=== PATIENT | female | born 1975 | race Caucasian/White ===

== ENCOUNTER → 2024-05-22 | Outpatient (CLI) | payer OTHER, SELFPAY ==
--- NOTE | 2024-05-22 17:04 | US_ITS ---
PROCEDURE: ULTRASOUND PELVIS, TRANSVAGINAL AND TRANSABDOMINAL REASON FOR EXAM: HEAVY BLEEDING DURING. TECHNIQUE: Real-time grayscale and color flow imaging was performed along with routine image documentation. COMPARISON: None. FINDINGS: Measurements: Uterus: 10.1 x 6.9 x 5.9 cm with a volume of 216 mL Endometrial Thickness: 1.1 cm. Right Ovary: 2.4 x 2.3 x 1.5 cm with a volume of 4.25 mL. Left Ovary: 1.7 x 1.7 x 1.6 cm with a volume of mL. Uterus: Normal size. Heterogeneous myometrium.. Midline fibroid measuring 1.4 x 0.9 x 0.9 cm. Right inferior fibroid measuring 1.4 x 1.4 x 1.2 cm. Cervix: Nabothian cysts measuring up to 1.4 cm. Endometrium: 1.1 cm thickness. Right ovary: Normal size and echotexture. No masses. Left ovary: Normal size and echotexture. No masses. Bladder: Unremarkable. US/Pelvic w/ Transvaginal IMPRESSION: 1. Small uterine fibroids. 2. Small nabothian cysts. Reading Location: [facility]
== END | disposition home or self-care (01) ==
LOC: US 17:02
PROVIDERS: Referring Provider Nurse Practitioner Family; Visit Provider Nurse Practitioner Family
DX: N93.9 Abnormal uterine and vaginal bleeding, unspecified (principal)
CPT/HCPCS: 76830; 76856

== ENCOUNTER → 2024-07-29 | Outpatient (CLI) | payer OTHER, SELFPAY ==
[2024-07-29 12:09] LABS: Absolute Lymphocyte Count 1.52 X10^3/uL (0.83-4.51); Absolute Neutrophil Count 4.9 X10^3/uL (2.0-7.7); Basophil# 0.04 X10^3/uL; Basophil% 0.6 % (0-1); Eosinophil# 0.22 X10^3/uL; Eosinophils% 3.1 % (0-5); Hematocrit 37.3 % (37-47); Hemoglobin 12.1 g/dL (12.0-15.0); Lymphocyte # 1.52 X10^3/ul (0.83-4.51); Lymphocyte % 21.3 % (19-41); Mean Corp Hgb Conc 32.4 g/dL (32-36); Mean Corpuscular Hgb 29.7 pg (27.0-32.0); Mean Corpuscular Volume 91.4 fL (81-99); Mean Platelet Vol. 9.8 fl (6.2-12.0); Monocyte# 0.29 X10^3/uL; Monocyte% 4.1 % (0-10); NRBC Flagged by Analyzer 0 % (0-5); Neutrophil # 4.94 X10^3/uL (2.7-7.7); Neutrophil % 69.2 % (47-70); Platelet Count 205 K/mm3 (150-450); RBC Distribution Width CV 12.5 % (11.6-14.6); RBC Distribution Width SD 41.9 fl (35.1-43.9); Red Blood Count 4.08 M/mm3 (4.2-5.4); White Blood Count 7.1 K/mm3 (4.4-11.0)
== END | disposition home or self-care (01) ==
LOC: BWCLAB 11:45
PROVIDERS: Referring Provider Nurse Practitioner Women's Health; Visit Provider Nurse Practitioner Women's Health
DX: N92.0 Excessive and frequent menstruation with regular cycle (principal); N94.6 Dysmenorrhea, unspecified; E05.90 Thyrotoxicosis, unspecified without thyrotoxic crisis or storm; R53.83 Other fatigue
CPT/HCPCS: 36415; 84439; 84443; 85025

== ENCOUNTER → 2024-08-05 | Outpatient (CLI) | payer OTHER, SELFPAY ==
--- NOTE | 2024-08-05 09:00 | EMB_PTH ---
PATIENT: MONICA ALFORD LOC: [facility] U#:[id number] AGE/SX: 49/F ROOM: RE08/05/[address]: Dr. Roselyn Crowe MD : [id number] BED: DIS: 08/05/2024 SPEC #: [id number] RECD: 08/05/24 12:09 STATUS: VANESSA MARTINEZGlen #: [id number] SHYAM: 08/05/24 09:[address]: Roselyn Crowe DEPT: SURGICAL PATHOLOGY RECD BY: Noe Nichole Tissues: A - Endometrium, NOS Procedures: Surgery Specimen Level IV HEADER OPERATION: Endometrial biopsy PRE-OP DIAGNOSIS: Menorrhagia TISSUE SUBMITTED: A- Endometrial tissue MICROSCOPIC DIAGNOSIS A. Endometrium, biopsy: * Inactive endometrium MICROSCOPIC DESCRIPTION Slides are reviewed. GROSS DESCRIPTION A. Received in formalin in a container labeled with the patient's name, date of , and with no further designation are multiple cortés-pink fragments of soft tissue admixed with blood and mucus measuring 2.0 x 0.8 x 0.3 cm in aggregate. Submitted in toto in A1. [facility] 08-05-2024 CPT:32160
== END | disposition home or self-care (01) ==
LOC: LABSPEC 11:30
PROVIDERS: Referring Provider Obstetrics & Gynecology; Visit Provider Obstetrics & Gynecology
DX: N92.0 Excessive and frequent menstruation with regular cycle (principal)
CPT/HCPCS: 88305

== ENCOUNTER → 2024-08-13 | Outpatient (CLI) | payer OTHER, SELFPAY ==
--- NOTE | 2024-08-13 12:15 | BI_ITS ---
EXAM: SCRN MAMM (CAD)W/DANIAL BILAT DATE: 08/13/2024 CLINICAL HISTORY: F, Age 49 y/o , SCREEN FOR BREAST CANCER No family history. BREAST CANCER RISK ASSESSMENT: Not assessed. TECHNIQUE: Bilateral screening digital breast tomosynthesis with 2D and 3D images. Computer aided detection. COMPARISON: Prior exam(s) dated January 31, 2023 and September 27, 2023.. FINDINGS: TISSUE DENSITY: The breast tissue is heterogenously dense, which may obscure small masses. Bilateral Breast Mammographic Findings: No significant masses, calcifications or other abnormalities are identified. No suspicious masses, areas of developing architectural distortion, or suspicious calcifications. There has been no significant interval change. BI/SCRN MAMM (CAD)W/DANIAL BILAT IMPRESSION: OVERALL FINAL ASSESSMENT: BIRADS 1 NEGATIVE RECOMMENDATION: Routine annual follow-up in 1 Year A letter with findings and recommendations will be mailed to the patient. Reading Location: [id number]
== END | disposition home or self-care (01) ==
LOC: OPBI 12:46
PROVIDERS: Referring Provider Obstetrics & Gynecology; Visit Provider Obstetrics & Gynecology
DX: Z12.31 Encounter for screening mammogram for malignant neoplasm of breast (principal)
CPT/HCPCS: 77063; 77067

== ENCOUNTER 2024-08-18 05:40 | Day surgery (SDC) | payer OTHER, SELFPAY ==
[2024-08-18] VITALS (14 sets, daily range): BP systolic 98–145; BP diastolic 53–88; PULSE 68–91; RESP 14–18; TEMP 36.2–37.2; O2SAT 84–100; BMI 37.9
[2024-08-18 06:06] LABS: Internal QC Validated? YES +Cl - CLEAR BKGD; Pregnancy, Urine Negative Negative
[2024-08-18] MEDS: Lactated Ringers 1,000 ML 40 ML IV ×2 (06:34→11:41)
--- NOTE | 2024-08-18 06:34 | EKG12_ITS ---
Test Reason : PREOP Blood Pressure : */* mmHG Vent. Rate : 77 BPM Atrial Rate : 77 BPM P-R Int : 156 ms QRS Dur : 78 ms QT Int : 368 ms P-R-T Axes : 43 19 24 degrees QTcB Int : 416 ms Normal sinus rhythm Normal ECG No previous ECGs available Confirmed by WIN JAQUEZ, MADELIN ([id number]), continuity editor RENATO CORTES ([id number]) on 08/20/2024 6:00:16 AM Referred By: Roselyn Crowe Confirmed By: MADELIN WALDEN MD
[2024-08-18] MEDS: Phenazopyridine 95 MG Tablet 190 MG PO (06:35)
[2024-08-18] MEDS: Acetaminophen 500 MG Tablet 1000 MG PO ×2 (06:35→14:57)
[2024-08-18] MEDS: Gabapentin 600 MG Tablet PO (06:36)
[2024-08-18] MEDS: Celecoxib 200 MG Capsule 400 MG PO (06:36)
[2024-08-18] MEDS: Scopolamine 1mg/72hr Patch 1 PATCH TD (06:37)
[2024-08-18] MEDS: Enoxaparin 40 MG/0.4 ML Syringe SC (06:39)
[2024-08-18 06:50] LABS: Bedside Glucose 164 mg/dL (74-106)
--- NOTE | 2024-08-18 06:50 | PRE.ANES_ITS ---
ASA Classification* ASA Classification ASA Classification: 3 Assessment & Plan Anesthesia* Anesthesia Assessment Anesthesia Assessment: Discussed sedation and/or anesthesia options, risks, benefits, and alternatives with patient/parents/legal guardian/POA. Questions invited. The patient/parents/legal guardian/POA seems to understand and agrees to proceed with anesthesia plan. Reviewed the physical assessment, medical history, allergy history and patient home medications list prior to surgery/procedure/anesthetic and documented any changes. Performed airway and anesthesia risk assessments. Anesthesia Type Anesthesia Type: General Anesthesia Focused Assessment* Temperature: 98.3 F Pulse Rate: 87 Blood Pressure: 129/64 Respiratory Rate: 16 Pulse Ox: 100 Airway Assessment Mouth opens: >3 cm Mallampati Score: II Focused Labs Anesthesia Preop lab: CBC WBC 7.1 K/mm3 (4.4-11.0) 07/29/24 11:46 07/29/24 RBC 4.08 M/mm3 (4.2-5.4) L 07/29/24 11:46 07/29/24 Hgb 12.1 g/dL (12.0-15.0) 07/29/24 11:46 07/29/24 Hct 37.3 % (37-47) 07/29/24 11:46 07/29/24 Plt Count 205 K/mm3 (150-450) 07/29/24 11:46 07/29/24 CHEMISTRY Potassium Pending 08/18/24 06:25 08/18/24 Sodium Pending 08/18/24 06:25 08/18/24 Magnesium Pending 08/18/24 06:25 08/18/24 BUN Pending 08/18/24 06:25 08/18/24 Creatinine Pending 08/18/24 06:25 08/18/24 Glucose Pending 08/18/24 06:25 08/18/24 TSH 2.920 uIU/mL (0.300-4.200) 07/29/24 11:46 07/02 COAG Urine Test Negative Negative 08/18/24 05:50 08/18/24 Pre-Assessment Diagnosis/Proposed Procedure Planned Operative Procedure(s): [facility] BSO Anesthesia History 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 When Was Last Pacemaker Check QUESTION #4 FULL TEXT: You/Your Family Experience fever (hyperthermia) with Anesthesia Last Oral Intake Last Oral intake: Last Oral Intake NPO since 23:00 08/18/24 06:12 Meds taken in AM with sips of Yes 08/18/24 06:12 water? Meds patient instructed to take am of surgery PONV PONV - vine pruner: PONV - vine pruner Female Yes 08/12/24 15:33 HX of Motion Sickness No 08/12/24 15:33 HX of N/V After Surgery No 08/12/24 15:33 Non-Smoker Yes 08/12/24 15:33 Duration of Surgery greater Yes 08/12/24 15:33 than 60 minutes Number of Risk Factors 3 08/12/24 15:33 PONV Score Moderate Risk 08/12/24 15:33 Height & Weight Height & Weight: Anesthesia: Height & Weight Height 5 ft 9 in 08/18/24 06:12 Weight: 116.573 kg 08/18/24 06:12 Body Mass Index (BMI) 37.9 08/18/24 06:12 Respiratory Assessment Respiratory Assessment - vine pruner: Respiratory Tract Infection Hx - vine pruner Hx Respiratory Tract Infection No 08/12/24 15:33 STOP Sleep Apnea STOP Sleep Apnea - vine pruner: STOP Sleep Apnea - vine pruner Hx Hypertension Yes: ONLY WITH 20 08/12/24 15:33 YRS AGO Hx Sleep Apnea No 08/12/24 15:33 CPAP BIPAP Do you snore loudly (louder No 08/12/24 15:33 than talking or can be heard Do you often feel tired/ No 08/12/24 15:33 fatigued/ sleepy during daytime? Has anyone observed you stop No 08/12/24 15:33 breathing during sleep? STOP Results Negative 08/12/24 15:33 QUESTION #5 FULL TEXT : Do you snore loudly (louder than talking or can be heard through closed doors)? 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 Specify any problems Hx of Preganancy in last 3 No 08/12/24 15:33 Months Nurse Filling Out Transfusion DSCHRIBER 08/12/24 15:33 & Questions: Date: 08/12/24 08/12/24 15:33 Time: 15:34 08/12/24 15:33 Patient unable to answer at this time (ie. confused, unrespo /Reproduction History /Reproductive History - vine pruner: /Reproductive Hx- vine pruner Hx Now No 08/12/24 15:33 Gestational Age (in weeks): EDC: Hx Hx Para Hx Section SAB No 08/12/24 15:33 Active Medications Active Medications: Current Medications Generic Name Dose Route Start Last Admin Trade Name Freq PRN Reason Stop Dose Admin Acetaminophen 1,000 mg 08/18/24 07:30 08/18/24 06:35 Acetaminophen 500 Mg Tablet PO 08/18/24 07:31 1,000 mg PREOP ONE Administration Celecoxib 400 mg 08/18/24 07:30 08/18/24 06:36 Celecoxib 200 Mg Capsule PO 08/18/24 07:31 400 mg PREOP ONE Administration Dexamethasone Sodium Phosphate 8 mg 08/18/24 07:30 Dexamethasone 4 Mg/Ml Vial IV 08/18/24 07:31 INTRAOP ONE Enoxaparin Sodium 40 mg 08/18/24 07:30 08/18/24 06:39 Enoxaparin 40 Mg/0.4 Ml Syringe SC 08/18/24 07:31 40 mg PREOP ONE Administration Gabapentin 600 mg 08/18/24 07:30 08/18/24 06:36 Gabapentin 600 Mg Tablet PO 08/18/24 07:31 600 mg PREOP ONE Administration Lactated Ringer's 1,000 mls @ 40 mls/hr 08/18/24 07:30 08/18/24 06:34 IV 40 mls/hr .Q25H CARLOS Administration Cefazolin Sodium 2 gm/ Sodium 110 mls @ 150 mls/hr 08/18/24 07:30 Chloride IV 08/18/24 08:13 INTRAOP ONE Insulin Human Lispro 0 unit 08/18/24 07:30 Insulin Lispro 100 Unit/Ml Insuln.Pen SC 08/18/24 18:00 Q4H PRN PRN BG >/= 180, SEE PROTOCOL Protocol Ondansetron HCl 4 mg 08/18/24 07:30 Ondansetron 4 Mg/2 Ml Vial IV 08/18/24 07:31 INTRAOP ONE Phenazopyridine HCl 190 mg 08/18/24 07:30 08/18/24 06:35 Phenazopyridine 95 Mg Tablet PO 08/18/24 07:31 190 mg PREOP ONE Administration Scopolamine HBr 1 patch 08/18/24 07:30 08/18/24 06:37 Scopolamine 1mg/72hr Patch TD 08/18/24 07:31 1 patch PREOP ONE Administration PFSH Medical History Wears glasses Anxiety History of steroid therapy Low iron Non-smoker Hypertension Hyperthyroidism Hepatitis A Diabetes Contraceptive management Home Medications ?Medication ?Instructions ?Recorded ?Last Taken ?Type alprazolam 0.5 mg tablet 0.5 mg PO PRN ANXIETY 08/18/24 04:00 History levothyroxine 175 mcg tablet 175 mcg PO QAM 05/19/24 0 08/18/24 04:00 History norethindrone acetate 5 mg tablet 5 mg PO TID #90 tabs 08/10/24 08/17/24 Rx Allergy/AdvReac Type Severity Reaction Status Date / Time No Known Allergies Allergy Verified 08/12/24 15:29 Family History Sister Immune thrombocytopenia Mother Bladder cancer Diabetes Myocardial infarction Thyroid disorder Father Diabetes Myocardial infarction Grandfather Diabetes Myocardial infarction Grandmother Thyroid disorder Surgical History History of tonsillectomy and adenoidectomy History of thyroidectomy Social History household members: spouse Smoking Status: Never smoker substance use type: does not use do you feel safe at home: Yes additional social history: -Travon Review of Systems (Anesthesia) ROS Narrative System reviewed and no additional complaints, except as documented.
[2024-08-18] MEDS: Bupivacaine 0.25% 30 ML Vial (06:56)
[2024-08-18] MEDS: Vasopressin 20 UNITS/ML Vial (06:56)
--- NOTE | 2024-08-18 07:03 | PCM.HP.BLA ---
History and Physical Intake Vital Signs 07/29/2510:38 07/30/2511:10 08/06/2507:45 Height 5 ft 9 in 5 ft 9 in 5 ft 9 in Weight: 251 lb 4 oz BMI 37.0 BP 126/85 H Intake Visit Reasons: EMB *ok per Acid Tender Required: No Is patient in pain?: No Allergies No Known Allergies Allergy (Verified 08/05/24 08:47) Medications ?Medication ?Instructions ?Recorded ?Confirmed ?Type alprazolam 0.5 mg tablet mg PO 05/19/24 08/05/24 History levothyroxine 175 mcg tablet 175 mcg PO QAM 05/19/24 08/05/24 History norethindrone acetate 5 mg tablet 5 mg PO .COMPLEX #45 tabs 07/29/24 08/05/24 Rx Is last menstrual period known: No Patient : No : No PFSH PFSH Medical History (Updated 08/05/24 @ 09:[address] Roselyn Crowe MD) Hyperthyroidism Hepatitis A Diabetes Contraceptive management Surgical History History of thyroidectomy Family History Sister Immune thrombocytopeniaMother Bladder cancer Diabetes Myocardial infarction Thyroid disorderFather Diabetes Myocardial infarctionGrandfather Diabetes Myocardial infarctionGrandmother Thyroid disorder Social History household members: spouse Smoking Status: Never smoker substance use type: does not use do you feel safe at home: Yes additional social history: -Travon History 1 Elective abortions Hx Para 1 Spontaneous abortions Hx # Term Pregnancies Ectopic pregnancies Hx # Pregnancies Multiple births # of living children HPI EMB *ok per Details: MONICA ALFORD is a 49 year old who presents for ocnsult for surgery. she is having heavy prolonged menses increasing over the last 6 months.. she has failed medical management with progesterone, she has uterine fibroids on ultrasound. endometrial biopsy done today. she is wanting to proceed with a hysterectomy. she bled for almost the whole month of june, she is just now stopping bleeding. Uterus: 10.1 x 6.9 x 5.9 cm with a volume of 216 mL Endometrial Thickness: 1.1 cm. Right Ovary: 2.4 x 2.3 x 1.5 cm with a volume of 4.25 mL. Left Ovary: 1.7 x 1.7 x 1.6 cm with a volume of mL. Uterus: Normal size. Heterogeneous myometrium.. Midline fibroid measuring 1.4 x 0.9 x 0.9 cm. Right inferior fibroid measuring 1.4 x 1.4 x 1.2 cm. Female Reproductive History Last Menstrual Period: 04/24/24 Cycle Length: 21-35 Bleeding Duration: 7 Questions: metorrhagia: No, sexually active: Yes, dyspareunia: No and PCB: No Menopausal Symptoms: No night sweats ROS Const Constitutional: Denies fatigue, night sweats, weight gain or weight loss ENT ENT: Reports system reviewed and no additional complaints, except as documented Cardio Card: Denies chest pain Resp Resp: Denies cough or dyspnea GI GI: Reports as per HPI; Denies abdominal pain, constipation, nausea or vomiting : Denies nipple discharge, urinary frequency, urinary incontinence, urinary hesitancy, urinary urgency, vaginal discharge, vaginal dryness, vaginal odor or vaginal pruritus Musc Musc: Denies arthralgias, back pain or muscle weakness Skin Skin/Breast: Denies alopecia, change in hair, dry skin, breast mass, breast pain, breast skin changes or nipple discharge Neuro Neuro: Reports system reviewed and no additional complaints, except as documented Psych Psych: Reports system reviewed and no additional complaints, except as documented Endo Endo: Denies cold intolerance, excessive sweating, heat intolerance or polydipsia Rayshawn/Lymph Hematologic/Lymphatic: Denies easy bleeding, Denies easy bruising and Denies lymphadenopathy Exam Const General: cooperative, healthy appearing, comfortable, no acute distress and well developed Orientation: alert [facility] Head: normal to inspection and normocephalic Ears: hearing grossly normal bilaterally and external ears normal Nose: external nose normal and nares normal Face and sinus: normal facial exam Neck Neck: normal visual inspection and no lymphadenopathy Thyroid: thyroid normal Chest Chest palpation & inspection: normal inspection of the chest Resp Effort & Inspection: normal respiratory effort Auscultation: clear to auscultation bilaterally Cardio Rate: regular rate Rhythm: regular rhythm Heart Sounds: S1 normal and S2 normal GI Inspection: normal to inspection and non-distended Palpation: soft and no hepatosplenomegaly General: bladder normal to palpation External Female Exam: normal external appearance and normal appearance of the urethra Urethra: normal appearance of the urethra, normal palpation and no discharge Speculum Exam - Vagina: normal appearance of the vagina and normal vaginal discharge Speculum Exam - Cervix: normal appearance of the cervix and nontender Bimanual Exam- Vagina & Uterus: normal bimanual exam, uterine size normal, bladder normal to palpation, uterine shape normal, No tender, uterine mobility normal, consistency normal, normal palpation and non-tender Bimanual Exam- Adnexa, other: normal adnexae, adnexae mobile, no masses and normal Pelvic Support: normal Musc Other: gross motor intact no deficits, full bilateral strength Skin General: no rashes or lesions noted Neuro General: patient alert, patient awake, moves all extremities and no focal motor deficits Motor: muscle tone normal throughout Extrem General: normal to inspection and no pedal edema Psych Appearance: grossly normal Mental Status: mental status grossly normal Affect: normal affect Speech and Movement: speech and movement normal Office Procedures Endometrial Biopsy Endometrial Biopsy Test: Yes Negative Consent Signed: Yes Time out checklist: patient, procedure, site marked/identified, positioning of patient, supplies available, allergies confirmed and team agrees on procedure Time out time: 09:18 tenaculum used: No dilator used: No Details: Cervix prepped with betadine and pipelle inserted into uterus without complication. Specimen obtained and sent to lab for analysis. All instruments removed from vagina without complications. Excellent hemostasis noted. Coding Level of Care Code Off vis,est,level 4 Diagnoses Uterine leiomyoma, unspecified location D25.9 Uterine leiomyoma location: unspecified location Dysmenorrhea N94.6 Menorrhagia with irregular cycle N92.1 Menorrhagia type: with irregular cycle CPT Codes Endometrial Biopsy (63918) Assessment and Plan Assessment and Plan (1) Uterine fibroid: Status: Acute Qualifiers: Uterine leiomyoma location: unspecified location Qualified Code(s): D25.9 - Leiomyoma of uterus, unspecified Comment: 2 seen on US up to 1.4cm. plan LAVHBS. (2) Dysmenorrhea: Status: Acute (3) Menorrhagia: Status: Acute Qualifiers: Menorrhagia type: with irregular cycle Qualified Code(s): N92.1 - Excessive and frequent menstruation with irregular cycle Orders: Orders Endometrial Biopsy Today Plan After discussing the patient's diagnosis and treatment plan options, patient wishes to proceed with surgical management. I have discussed with the patient the risks, benefits, and alternatives of the procedure which include but are not limited to risks of anesthesia, bleeding, infection, possible damage to bowel, bladder, or surrounding vasculature which could lead to additional surgery to evaluate any complications. Patient agrees to procedure and wishes to proceed. ACOG/uptodate references given for additional information regarding procedure. UPDATE- I have seen the patient and performed any clinically relevant updates to the history and physical exam. Roselyn Crowe MD
[2024-08-18 07:28] LABS: ALB/GLOB Ratio 1.4 RATIO (0.9-2.4); AST(SGOT) 18 U/L (<=31); Alanine Aminotransfer ALT/SGPT 21 U/L (<=34); Albumin, Serum 4.1 g/dL (3.5-5.0); Alkaline Phosphatase 48 U/L (35-104); Anion Gap 12 (5-15); BUN 16 mg/dL (4-19); BUN/Creat Ratio 21.4 RATIO (10-20); Calcium,Total 9.1 mg/dL (7.6-11.0); Carbon Dioxide 20.7 mmol/L (21.0-32.0); Chloride 107 mmol/L (98-108); Creatinine, Serum 0.72 mg/dL (0.70-1.20); EST Glomerular Filtration Rate 102 (>60); Estimated Creatinine Clearance 130.26 ml/min (50-250); Globulin 2.9 g/dL (2.2-4.2); Glucose 171 mg/dL (70-99); Protein, Total 7.1 g/dL (5.9-8.4); Sodium Level 139 mmol/L (133-145); Total Bilirubin 0.25 mg/dL (0.00-1.30)
--- NOTE | 2024-08-18 07:30 | UT_PTH ---
PATIENT: MONICA ALFORD [place] [facility] [place][id number] AGE/SX: 49/F ROOM: RE08/18/[address]: Dr. Roselyn Crowe MD : 1975 BED: DIS: 08/18/2024 SPEC #: [id number] RECD: 08/18/24 12:14 STATUS: VANESSA REGlen #: [id number] SHYAM: 08/18/24 07:[address]: Roselyn Crowe DEPT: SURGICAL PATHOLOGY RECD BY: Noe Nichole ENTERED: 08/18/24 13:20 SP TYPE: UTERUS OTHR DR: Bisi Brock, COMMUNICATIONS ANALYST-C Tissues: A - Uterus, NOS Procedures: Immunohistochemical Stains Surgery Specimen Level V IHC Stain ADDITIONAL HEADER OPERATION: ERAS, hysterectomy, LAVH, bilateral salpingectomy, cystoscopy PRE-OP DIAGNOSIS: Uterine leiomyoma, dysmenorrhea, menorrhagia with irregular cycle TISSUE SUBMITTED: A- Uterus, cervix, bilateral fallopian tubes MICROSCOPIC DIAGNOSIS A. Uterus, cervix and bilateral fallopian tubes, hysterectomy and bilateral salpingectomy: * ENDOMYOMETRIUM: ENDOMETRIOID ADENOCARCINOMA, FIGO GRADE 1, WITH SUPERFICIAL MYOMETRIAL INVASION (<50% myometrial invasion) AND INTACT MMR proteins - see Synoptic Report and Comment. * Cervix: mildly dilated endocervical glands. * Right fallopian tube: no specific pathologic change. * Left fallopian tube: no specific pathologic change. SYNOPTIC REPORT: Clinical History? 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 ___ Hysterectomy? ___ Bilateral salpingectomy? Specimen Integrity? ___ Intact? TUMOR? Tumor Size:? unknown (grossly not visualized). Tumor is estimated to involve approximately 50% of the endometrium. Histologic Type ___ Endometrioid carcinoma? Histologic Grade ___ FIGO grade 1 (endometrioid carcinoma) ? Mismatch Repair (MMR) Status? MMR Immunohistochemistry? ___ Intact nuclear expression of MLH1, PMS2, MSH2 and MSH6? p53 Immunohistochemistry? ___ Normal (wild-type) expression? Myometrial Invasion ___ Present, inner half (less than 50%)? Specify Percentage: approximately 15% Adenomyosis? ___ Present, uninvolved by carcinoma? Uterine Serosal Involvement ___ Not identified? Lower Uterine Segment Involvement? ___ Not identified? Cervical Involvement? ___ Not identified? Lymphatic and / or Vascular Invasion? ___ Not identified? MARGINS? Margin Status ___ All margins negative for carcinoma Distance to closest margin? ___ Cannot be determined: tumor was not identified at gross examination REGIONAL LYMPH NODES? Regional Lymph Node Status ___ Not applicable (no regional lymph nodes submitted or found)? DISTANT METASTASIS? Distant Site(s) Involved ___ Not applicable? pTNM CLASSIFICATION (AJCC 8th Edition)?(Note M) Reporting of pT, pN, and (when applicable) pM categories is based on information available to the pathologist at the time the report is issued. As per the AJCC (Chapter 1, 8th Ed.) it is the managing physician's responsibility to establish the final pathologic stage based upon all pertinent information, including but potentially not limited to this pathology report.? pT Category? pT1: Tumor confined to the corpus uteri, including endocervical glandular involvement? _X_ pT1a: Tumor limited to the endometrium or invading less than half the myometrium? ___ pT1b: Tumor invading one half or more of the myometrium? ___ pT1 (subcategory cannot be determined)? ___ pT2: Tumor invading the stromal connective tissue of the cervix but not extending beyond the uterus. Does NOT include endocervical glandular involvement.? pT3: Tumor involving serosa, adnexa, vagina, or parametrium? ___ pT3a: Tumor involving the serosa and / or adnexa (direct extension or metastasis)? ___ pT3b: Vaginal involvement (direct extension or metastasis) or parametrial involvement? ___ pT3 (subcategory cannot be determined)? ___ pT4: Tumor invading bladder mucosa and / or bowel mucosa (bullous edema is not sufficient to classify a tumor as T4) pN Category? ___ pN not assigned (no nodes submitted or found)? FIGO STAGE? FIGO Stage (FIGO 2009 Staging / 2018 FIGO Cancer Report) ___ I: Tumor confined to the corpus uteri? ___ IA: No or less than half myometrial invasion? ADDITIONAL FINDINGS p53: wild type p16: patchy positive Estrogen Receptor: positive (30%, weak intensity) Progesterone Receptor: positive (10%, weak intensity) [id number]: equivocal (2+) COMMENT A preliminary diagnosis was discussed with Dr Crowe 1:58 PM, 09/03/2024. Dr Crowe's office ([place]) was notified of the final [id number] PM, 09/14/24. Selected slides/images were reviewed in intradepartmental consultation by Dr Jordi Bell and Dr Dorian Coker ([employer] pathology division, [facility]). MICROSCOPIC DESCRIPTION Slides are reviewed. All matched controls reacted appropriately (p53, p16, ER, [place], HER2). These tests were developed and their performance characteristics determined by [facility]. They may not have been cleared or approved by the U.S. Food and Drug Administration. The FDA has determined that such clearance or approval is not necessary.? The above immunohistochemical/dualISH?markers are ordered and reviewed by the Pathologist. All controls show appropriate reactivity. (MSH2, MSH6, MLH1, PMS2) All immunohistochemistry, in situ hybridization, and histochemical tests were developed by and are performed at the [facility], [address] [place] [address],? [address], [place] [address]. All Immunofluorescent (IF)?tests were developed by and are performed at the [facility], [address] [place] [address], [place], [place] ?[address]. All tests reported here, except those addressing HER2 overexpression as a predictive marker, have not been cleared by or approved by the US Food and Drug Administration (FDA). The laboratory is regulated under CLIA as qualified to perform high-complexity testing. The tests are used for clinical purposes. They should not be regarded as investigational or for research. GROSS DESCRIPTION A. Received in formalin in a container labeled with the patient's name, date of , and cervix, uterus, bilateral fallopian tubes is a hysterectomy specimen with attached cervix and bilateral attached fimbriated fallopian tubes. The fallopian tubes are amputated and the uterus with cervix weighs 165.4 g, measuring 10.0 cm from fundus to ectocervix, 5.0 cm from cornu to cornu, and 5.5 cm from anterior to posterior. The serosa is cortés-pink, focally roughened, and predominantly smooth. The 3.8 x 3.2 cm white-pink ectocervix is smooth with a 1.0 cm slit-like os. The specimen is bivalved to reveal a 4.0 x 0.8 cm corrugated endocervix with multiple cysts measuring up to 0.7 cm in greatest dimension. The triangular endometrial cavity is 4.3 cm in length by 3.2 cm in width. There is red-cortés, heaped up and thickened endometrium measuring up to 0.8 cm in thickness. No mass-like lesion is grossly recognized. The cortés-pink myometrium is coarsely trabecular and nodular, measuring up to 2.6 cm in greatest thickness. No discrete myometrial nodules are discovered. The right fimbriated fallopian tube is 5.0 cm in length by 0.8 cm in diameter with purple-olvera, smooth and glistening serosa and an unremarkable fimbriated end. Sectioning reveals a pinpoint lumen.The left fimbriated fallopian tube is 4.0 cm in length by 0.8 cm in diameter with cortés-pink, smooth and glistening serosa with an unremarkable fimbriated end. Sectioning reveals a pinpoint lumen. Division Leader sections:A1. Anterior cervix with anterior serosal shaveA2. Posterior cervix with posterior serosal shaveA3. Anterior full-thickness section with coarsely trabecular myometrium and thickened endometriumA4. Anterior endomyometrium (superficial x 2)A5. Posterior full-thickness section with trabecular myometrium and thickened endometriumA6. Posterior endomyometrium (superficial sections)A7. Right fallopian tubeA 8. Left fallopian tube Per pathologist request, the entire endomyometrial junction is submitted as follows:A9. Anterior full-thickness [id number]. Entirety of anterior endometrium submitted sequentially from fundus to lower uterine segment (superficial sections)A15. Anterior lower uterine segment (orange ink connects to anterior cervix submitted in cassette A1) A16. Posterior full-thickness [id number]. Entirety of posterior endomyometrium submitted sequentially from fundus to lower uterine segment (superficial sections) A24. Posterior lower uterine segment (orange ink connects to posterior cervix submitted in cassette A2) [facility] 08-18-2024 CPT:39007,[id number],[id number] ADDENDUM ADDENDUM ADDENDUM ADDENDUM ADDENDUM ADDENDUM ADDENDUM ADDENDUM ADDENDUM ADDENDUM ADDENDUM ADDENDUM ADDENDUM ADDENDUM ADDENDUM ADDENDUM ADDENDUM 09/22/2024 09:51 ADDENDUM 09/22/2024 09:51 ADDENDUM 09/22/2024 09:51 ADDENDUM 09/22/2024 09:51 ADDENDUM 09/22/2024 09:51 This addendum is added to incorporate an outside pathology consultation report. The case was examined at [facility] by Dr. Ray (#[id number]) and the following diagnosis was rendered. A. Uterus, hysterectomy and bilateral salpingectomy: HER2 FISH: NEGATIVE HER2 SCORE REPORT - BLOCK A3: HER2 SCORE: NEGATIVE HER2 / CEP 17 RATIO: 1.2 HER2 COPY NUMBER / CELL: 3.9 Please see complete above mentioned consultation report in EMR
--- NOTE | 2024-08-18 07:33 | PCM.OPRPT ---
Problems Associated Problem List Diagnoses (1) Uterine fibroid: (2) Dysmenorrhea: (3) Menorrhagia: (4) S/P laparoscopic assisted vaginal hysterectomy (LAVH): Procedures Urinary/Genital 52xxx-59xxx: [id number] LAVH+BS/O <250gr Uterus Operative Report (Standard) Operative Information Date of Procedure: 08/18/24 Pre-Operative Diagnosis: see problem list Post-Operative Diagnosis: same Surgery/Procedure Performed: laparoscopic assisted vaginal hysterectomy bilateral salpingectomy guard rail installer: Yes Higher Education Administrator: Richard Dinh Tasks completed by middle school assistant principal: Opening & closing, Trocar and Retracting Additional title i assistant?: No Type of Anesthesia: General RN Documented Start/Stop Times: Operation Date: 08/18/24 07:30 Case Time Into Pre-Op 08/18/24 05:45 Out of Pre-Op 08/18/24 07:31 Anesthesia Start 08/18/24 07:38 Into Room 08/18/24 07:38 Procedure Start 08/18/24 08:09 Procedure Start Time: 08:09 Procedure Stop Time: 10:09 Select all DRAINS/GRAFTS/IMPLANTS that apply: Drains (fenton) Drain details: fenton removed at end of procedure Estimated Blood Loss: 200 Fluids Replaced: crystalloid Specimen collected: Yes Description of specimen(s) removed: uterus and tubes Description of surgery: Patient received preoperative antibiotics and SCDs were on preoperatively. Patient was taken back to the operating room and placed in the dorsal lithotomy position. General anesthesia was induced and patient was prepped and draped in normal sterile fashion. Uterine manipulator was placed inside the uterus and Fenton catheter placed in the bladder. The umbilicus was grasped with towel clamps and an intraumbilical incision was made after injecting with quarter percent Marcaine and a Veress needle entered into the abdomen confirmed to be intra-abdominal with a low opening pressure. Abdomen was insufflated with CO2 gas and the Veress needle removed and the 5 mm trocar was placed under direct visualization without complication. Right and left lower quadrants were transilluminated and injected with quarter percent Marcaine and 5 mm ports placed under direct visualization. Pelvis was well visualized see operative findings for additional information. Bilateral fallopian tubes were identified and transected with the LigaSure device across the mesosalpinx to the level of the utero-ovarian ligament which was also transected with the LigaSure device. The broad ligament was opened up by transecting the round ligament bilaterally and skeletonizing the uterine vessels bilaterally, and creating a bladder flap using the LigaSure device. The uterine arteries were transected bilaterally with good visualization of the bladder and the ureters were seen to be inferior lateral to the operative area. Attention was then paid to the vaginal portion of the procedure and the cervix was grasped with Clementina clamps and circumferentially injected with dilute vasopressin. The cystoscopy was then performed and bilateral ureteral strong spray was noted and the bladder was noted to have no abnormality or lesions seen. this was done due to the large amount of pelvic dissection and congestion. A circumferential incision was made and the vaginal mucosa was mobilized off posteriorly and the cul-de-sac entered into sharply and a longneck speculum placed. The anterior cul-de-sac was then identified and entered into sharply. The uterosacral ligaments were clamped cut and suture ligated with 0 Monocryl bilaterally followed by the cardinal ligaments which were clamped cut and suture ligated bilaterally with 0 Monocryl. The uterus serially descended and was removed without difficulty with minimal morcellation. Pelvic sidewall pedicles were checked and noted to have excellent hemostasis. The vaginal mucosa was reapproximated incorporating the posterior peritoneum. This was reapproximated using 0 Vicryl [id number] sutures. Excellent hemostasis was noted. Attention paid to the abdominal portion of the procedure again. The pelvis and cul-de-sac was well visualized and no significant active bleeding noted but some raw areas were seen on the peritoneum and therefore hemoblast was applied. Pressure was taken down and the areas visualized and noted of excellent hemostasis. All ports were removed under direct visualization without complication and the abdomen was desufflated of air. The instruments removed from the abdomen and the vagina vaginal sweep was negative. Port sites on the abdomen were closed with 4-0 Monocryl interrupted sutures and Steri's and windows were applied. She was awoken and taken recovery in stable condition. Surgical Findings: fibroid uterus, nl tubes ovaries severe pelvic congestion Complications Complications: No
[2024-08-18] MEDS: Magnesium 1 GM over 15 mins IV (07:38)
[2024-08-18] MEDS: Cefazolin 2 GM in 0.9% Normal Saline (100mL Bag) 100 ML IV (07:38)
--- NOTE | 2024-08-18 07:39 | DCINST_ITS ---
Discharge Instructions Diet Discharge Diet: No restrictions DC O2, CPAP, BIPAP needs Home O2 Discharge instructions: No Dressing / Incision May resume sexual activity in: 6 weeks Weight Bearing Status: Full weight bearing Dressing / Incision Call your doctor if your incision/area has: Continuous Slow Oozing, Sudden Increased Bleeding, Increased Pain/ Swelling, Increased Redness and Foul Smelling Discharge Call your doctor if you observe: Fever of 101 or Higher, Using more than 1 pad per hour, Shortness of breath, Chest pain and Uncontrolled pain Suture Line Care: Avoid Pulling/Pushing and Avoid Pinching/Bending Remove Dressing in: 1 week (if present) Cleanse incision/area with: Soap & Water and Keep Dressing Clean & Dry Follow Up Care Please Follow Up With: Roselyn Crowe MD When: Call to make an appointment with your doctor for a postop visit in 2 and 6 weeks. Test Results: Test results from this visit will be discussed in further detail at your follow- up appointment, if applicable. Discharge Plan Admission Attending Provider: Roselyn Crowe Primary Care Provider: Bisi Brock Instructions Print Language: Armenian Discharge Orders/Prescriptions Prescriptions: New oxycodone-acetaminophen [Percocet] 5-325 mg tablet 1 tab PO Q4H PRN (Reason: pain) 7 Days Qty: 20 0RF naproxen 500 mg tablet 500 mg PO BID PRN PRN (Reason: Pain) Qty: 30 1RF No Action levothyroxine 175 mcg tablet 175 mcg PO QAM alprazolam 0.5 mg tablet 0.5 mg PO PRN Patient Comments: [NO ORIGINAL SIG] norethindrone acetate 5 mg tablet 5 mg PO TID Qty: 90 3RF Disposition Disposition (needs filled in before D/C Order can be placed): Home, Self Care
[2024-08-18] MEDS: dexAMETHasone 4 MG/ML Vial 8 MG IV (07:45)
--- NOTE | 2024-08-18 10:30 | PCM.POST.ANE ---
Anesthesia: Postop Eval I Current Vital Signs Temperature: 99 F Pulse Rate: 89 Blood Pressure: 109/53 Respiratory Rate: 16 Pulse Ox: 97 Oxygen Delivery Method: Nasal Cannula Oxygen Flow Rate (L/min): 4 Assessment Airway patent: Yes Spontaneous unlabored respirations: Yes Mental status: Awake and Calm nausea: No Vomiting: No Anesthesia Complication: No Fluid Hydration Crystalloid volume administer (ml): 900 Total IV fluid infused: 900 Progress Note Anesthesia document: Postop Eval 1 completed: Yes
--- NOTE | 2024-08-18 11:07 | POSTOPAN2_ITS ---
Anesthesia Postop Eval I Sum Postop Eval Completion status Anesthesia document: Postop Eval 1 completed: Yes Anesthesia Postop Eval I Summary Anesthesia Postop Eval I Summary: Anesthesia Postop Eval I: Assessment Summary Airway patent Yes 08/18/24 10:45 FARM EQUIPMENT [email or web address].[email or web address] Spontaneous unlabored Yes 08/18/24 10:45 FARM EQUIPMENT TECHNICIAN.GDOTT respirations Mental status Awake,Calm 08/18/24 10:45 FARM EQUIPMENT TECHNICIAN.GDOTT nausea No 08/18/24 10:45 FARM EQUIPMENT TECHNICIAN.GDOTT Vomiting No 08/18/24 10:45 FARM EQUIPMENT TECHNICIAN.GDOTT Anesthesia Postop Eval I: Fluid Summary Crystalloid volume administer 900 08/18/24 10:45 FARM EQUIPMENT TECHNICIAN.GDOTT (ml) Colloids volume administered ( ml) Blood Product volume administered (ml) Total IV fluid infused 900 08/18/24 10:45 FARM EQUIPMENT TECHNICIAN.GDOTT Anesthesia Postop Eval I: Summary Notes Anesthesia Complication No 08/18/24 10:45 FARM EQUIPMENT TECHNICIAN.GDOTT Anesthesia Complication Comment: Post-operative progress note Anesthesia: Postop Eval II Evaluation Mental status: Awake Pain Level: 0 nausea: No Vomiting: No
--- NOTE | 2024-08-18 11:07 | PCM.POSTANE2 ---
Anesthesia Postop Eval I Sum Postop Eval Completion status Anesthesia document: Postop Eval 1 completed: Yes Anesthesia Postop Eval I Summary Anesthesia Postop Eval I Summary: Anesthesia Postop Eval I: Assessment Summary Airway patent Yes 08/18/24 10:45 SUPERVISOR PRESS [email or web address].[email or web address] Spontaneous unlabored Yes 08/18/24 10:45 SUPERVISOR PRESS ROOM.GDOTT respirations Mental status Awake,Calm 08/18/24 10:45 SUPERVISOR PRESS ROOM.GDOTT nausea No 08/18/24 10:45 SUPERVISOR PRESS ROOM.GDOTT Vomiting No 08/18/24 10:45 SUPERVISOR PRESS ROOM.GDOTT Anesthesia Postop Eval I: Fluid Summary Crystalloid volume administer 900 08/18/24 10:45 SUPERVISOR PRESS ROOM.GDOTT (ml) Colloids volume administered ( ml) Blood Product volume administered (ml) Total IV fluid infused 900 08/18/24 10:45 SUPERVISOR PRESS ROOM.GDOTT Anesthesia Postop Eval I: Summary Notes Anesthesia Complication No 08/18/24 10:45 SUPERVISOR PRESS ROOM.GDOTT Anesthesia Complication Comment: Post-operative progress note Anesthesia: Postop Eval II Evaluation Mental status: Awake Pain Level: 0 nausea: No Vomiting: No
[2024-08-18] MEDS: Ketorolac 15 MG/ML Vial IV (11:46)
[2024-08-18 15:14] LABS: Hematocrit 38.7 % (37-47); Hemoglobin 12.7 g/dL (12.0-15.0); Mean Corp Hgb Conc 32.8 g/dL (32-36); Mean Corpuscular Hgb 30.4 pg (27.0-32.0); Mean Corpuscular Volume 92.6 fL (81-99); Mean Platelet Vol. 9.4 fl (6.2-12.0); Platelet Count 257 K/mm3 (150-450); RBC Distribution Width CV 13.2 % (11.6-14.6); RBC Distribution Width SD 44.6 fl (35.1-43.9); Red Blood Count 4.18 M/mm3 (4.2-5.4)
--- NOTE | 2024-08-18 15:16 | SUR.PHASEII ---
at 1315, ordered labs were attempted to be drawn and without success.[id number], another RN attempted blood draw. unsuccessful. Lab notified. Labs drawn at 1410. At 1440, Lab was notified that lab drawn does not show pending status on pt's chart.
== END 2024-08-18 17:00 | disposition home or self-care (01) ==
LOC: SDC 05:41 → AC 05:43
PROVIDERS: Anesthesiology; PCP Nurse Practitioner Family; Referring Provider Obstetrics & Gynecology; Visit Provider Obstetrics & Gynecology
PROC: 0UT9FZZ Resection of Uterus, Via Natural or Artificial Opening With Percutaneous Endoscopic Assistance (ICD-10-PCS; CPT 58552; principal; 2024-08-18 07:05)
DX: C54.1 Malignant neoplasm of endometrium (principal); N94.6 Dysmenorrhea, unspecified; N92.1 Excessive and frequent menstruation with irregular cycle; E05.90 Thyrotoxicosis, unspecified without thyrotoxic crisis or storm; Z79.890 Hormone replacement therapy; Z79.899 Other long term (current) drug therapy
CPT/HCPCS: 58552; 80053; 81025; 82962; 83735; 85027; 86850; 86900; 86901; 88307; 88341; 88342; 93005; J2405; J3475

== ENCOUNTER 2024-09-10 22:02 | Emergency (ER) | payer SELFPAY ==
[2024-09-10 22:03] VITALS: BP 148/73; PULSE 102; RESP 18; TEMP 36.2; O2SAT 100; BMI 37.2
[2024-09-10 22:36] LABS: Hematocrit 37.3 % (37-47); Hemoglobin 12.6 g/dL (12.0-15.0); Mean Corp Hgb Conc 33.8 g/dL (32-36); Mean Corpuscular Hgb 30.6 pg (27.0-32.0); Mean Corpuscular Volume 90.5 fL (81-99); Mean Platelet Vol. 9.7 fl (6.2-12.0); Platelet Count 220 K/mm3 (150-450); RBC Distribution Width CV 12.1 % (11.6-14.6); Red Blood Count 4.12 M/mm3 (4.2-5.4); White Blood Count 7.9 K/mm3 (4.4-11.0)
--- NOTE | 2024-09-10 22:39 | EDS_ITS ---
HPI History of Present Illness Chief Complaint: GI Bleed Detail of Chief Complaint: Patient was instructed to go to the emergency room because of black stool. Informant: patient Onset/Context/Timing Onset: Today, Yesterday and Days (First episode was September 08) Context: Sudden Onset Timing: Continuous Quality: Black stool Location: GI Current Severity: Not applicable Worsened by: Patient admits to taking Pepto-Bismol. Relieved by: Not applicable Associated Symptoms Associated Symptoms: None Narrative Narrative: Patient is a 49-year-old woman. She had a hysterectomy [address] Roselyn Crowe. 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 She denies abdominal pain. She denies nausea or vomiting. She denies history of peptic ulcer disease, reflux. She denies liver disease. She denies orthostatic symptoms. She denies lightheadedness with standing. She denies dyspnea with exertion. Prior similar symptoms: No Recent Illness/Hospitalization: Yes PFSH PFSH Medical History Wears glasses Anxiety History of steroid therapy Low iron Non-smoker Hypertension Hyperthyroidism Hepatitis A Diabetes Contraceptive management Home Medications ?Medication ?Instructions ?Recorded ?Last Taken ?Type alprazolam 0.5 mg tablet 0.5 mg PO PRN ANXIETY 08/18/24 04:00 History levothyroxine 175 mcg tablet 175 mcg PO QAM 05/19/24 0 08/18/24 04:00 History Allergy/AdvReac Type Severity Reaction Status Date / Time No Known Allergies Allergy Verified 09/10/24 22:03 Family History Sister Immune thrombocytopenia Mother Bladder cancer Diabetes Myocardial infarction Thyroid disorder Father Diabetes Myocardial infarction Grandfather Diabetes Myocardial infarction Grandmother Thyroid disorder Surgical History Status post bilateral salpingectomy S/P laparoscopic assisted vaginal hysterectomy (LAVH) History of tonsillectomy and adenoidectomy History of thyroidectomy Social History household members: spouse Smoking Status: Never smoker substance use type: does not use do you feel safe at home: Yes additional social history: -[facility] Cardiovascular Cardiovascular: Denies chest pain or palpitations Respiratory/Chest Respiratory/Chest: Denies dyspnea or dyspnea on exertion Gastrointestinal Gastrointestinal: Reports diarrhea, melena and other Details: Patient states she did not feel well couple of days ago and had diarrhea. She took the Pepto- Bismol because she did not feel well. ; Denies abdominal pain, constipation, nausea or vomiting Genitourinary Genitourinary ED: Denies dysuria, hematuria or urinary frequency Musculoskeletal Musculoskeletal: Denies arthralgias or myalgias Integumentary Denies rash Neurologic Neurologic: Denies weakness EXAM Physical Exam Const Vital Signs: 09/10/24 22:03 Temperature 97.1 F L Temperature Source Temporal Pulse Rate 102 H Respiratory Rate 18 Blood Pressure 148/73 H Blood Pressure Mean 98 Pulse Ox 100 Oxygen Delivery Method Room Air Positive well nourished and well developed Constitutional Narrative: Patient appears in no distress. BMI is 37.2. Vital signs reveal heart rate of 102 and blood pressure of 148/73. She does not have history of hypertension. She does have a history of anxiety and hypothyroidism. General Appearance ED: well developed and NAD; Negative for pallor HEENT Reports moist mucous membranes HEENT Narrative: Head is atraumatic and normocephalic. Ears are normal. Nares are patent. Eyes PERRL and EOMs intact bilaterally General Eye ED: Negative for pale conjunctiva Neck no lymphadenopathy, supple and no JVD Resp normal respiratory effort Cardio regular rate and regular rhythm GI normal to inspection, nondistended, normoactive bowel sounds, non-tender, non- distended and no masses; Negative for hepatosplenomegaly GI Narrative: Rectal exam with nurse cloth doubling machine operator revealed no fissures, fistulas or hemorrhoids. Stool is very dark blackish green. She did have pictures of her stool and they appeared very black. Palpation: soft Back/Spine no CVA tenderness Extremity normal to inspection Neuro oriented x3 and CN's II-XII intact bilaterally Sensorium / Orientation: alert Psych mental status grossly normal Skin no rashes or lesions noted, no wounds and skin turgor normal General Skin Exam: Negative for jaundice or pallor MDM MDM MDM Narrative Medical decision making narrative: Differential diagnosis is GI bleed versus black stool due to Pepto-Bismol. Suspect the latter. CBC was obtained to assess H&H compared to most recent and still was sent for Hemoccult testing. History & Record Review Additional record(s) reviewed:: Prior inpatient record (H&P done by Dr. Javi Cohen was reviewed. Hysterectomy was laparoscopic and performed on August 18. There is no complications. She had a follow-up visit September 02.) Lab Data Attestation: I reviewed the patient's lab results. Lab results narrative: H&H is unchanged from prior. Labs: Laboratory Results - last 24 hr 09/10/24 22:26 WBC 7.9 RBC 4.12 L Hgb 12.6 Hct 37.3 MCV 90.5 MCH 30.6 MCHC 33.8 RDW Std Deviation 40.0 RDW Coeff of Shree 12.1 Plt Count 220 MPV 9.7 She Dulle for occult blood was negative Treatment and Re-Evaluation :: Patient was informed the black stool was due to the Pepto-Bismol. She also was informed that her blood pressure was elevated and this should be rechecked in 1 to 2 weeks. There is no indication for any testing at this time since she has no symptoms. Discharge Plan Triage Chief Complaint: GI Bleed ED Provider: Ru Olsen Dx/Rx/DC Orders Clinical Impression: Black stool, Elevated blood-pressure reading without diagnosis of hypertension, Tachycardia Instructions: ED Hypertension, To Be Confirmed Prescriptions: No Action levothyroxine 175 mcg tablet 175 mcg PO QAM alprazolam 0.5 mg tablet 0.5 mg PO PRN Patient Comments: [NO ORIGINAL SIG] Primary Care Provider: Bisi Brock Referrals: Bisi Brock, [employer] [Primary Care Provider] - 1-2 Weeks Activity Restrictions/Additional Instructions: Your blood pressure reading was elevated. Recommend recheck in 1 to 2 weeks. Your stool was black due to the Pepto-Bismol. Print Language: [place] Disposition Disposition: Home, Self Care
[2024-09-10 22:55] VITALS: BP 126/71; PULSE 88; RESP 18; TEMP 36.8; O2SAT 100
== END 2024-09-10 22:57 | disposition home or self-care (01) ==
PROVIDERS: Emergency Provider Emergency Medicine; PCP Nurse Practitioner Family; Visit Provider Emergency Medicine
DX: R19.5 Other fecal abnormalities (principal); R00.0 Tachycardia, unspecified; E03.9 Hypothyroidism, unspecified; F41.9 Anxiety disorder, unspecified; Z79.890 Hormone replacement therapy; Z79.899 Other long term (current) drug therapy; Z90.710 Acquired absence of both cervix and uterus
CPT/HCPCS: 82274; 85027; 99282; A4216

== ENCOUNTER → 2024-11-16 | Outpatient (CLI) | payer SELFPAY | END | disposition home or self-care (01) | PROVIDERS: PCP Nurse Practitioner Family; Referring Provider Obstetrics & Gynecology; Visit Provider Obstetrics & Gynecology | DX: N95.1 Menopausal and female climacteric states (principal); Z13.1 Encounter for screening for diabetes mellitus | CPT/HCPCS: 36415; 83036; 84439; 84443 ==